=== PATIENT | male | born 1950 | race Caucasian/White ===

== ENCOUNTER 2018-09-18 17:26 | Observation (INO) ==
[2018-09-18] MEDS ORDERED: guaiFENesin/DM ER 600-30 MG TABLET PO PRN (17:36)
[2018-09-18] MEDS ORDERED: POTASSIUM CHLORIDE 20 MEQ TABLET PO PRN (17:36)
[2018-09-18] MEDS ORDERED: BISACODYL 5 MG TABLET PO PRN (17:36)
[2018-09-18] MEDS ORDERED: MAGNESIUM SULF RIDER 4 GM in PREMIX 1 EACH IV PRN (17:36)
[2018-09-18] MEDS ORDERED: ZALEPLON 5 MG CAPSULE PO PRN (17:36)
[2018-09-18] MEDS ORDERED: ONDANSETRON 4 MG/2 ML VIAL IV PRN (17:36)
[2018-09-18] MEDS ORDERED: diphenhydrAMINE CAP 25 MG CAPSULE PO PRN (17:36)
[2018-09-18] MEDS ORDERED: LACTULOSE 20 GM/30 ML UDCUP PO PRN (17:36)
[2018-09-18] MEDS ORDERED: MAGNESIUM SULF RIDER 2 GM in PREMIX 1 EACH IV PRN (17:36)
[2018-09-18] MEDS ORDERED: ACETAMINOPHEN 325 MG TABLET PO PRN (17:36)
[2018-09-18 18:36] LABS: Basophils % 0.3 % (0.0-0.8); Eosinophils % 0.6 % (0.00-10.9); Hematocrit 34.8 VOL% (42.0-52.0); Immature Granulocytes % 0.3 %; Immature Granulocytes Absolute 0.02 #; Lymphocytes # 1.8 10*3/uL (1.4-4.0); Lymphocytes % 27.5 % (21.2-54.2); Mean Corpuscular HGB Conc 31.6 GM/DL (32-36); Mean Corpuscular Volume 97.8 FL (87-102); Mean Platelet Volume 9.2 FL (9.6-12.0); Monocytes % 6.7 % (1.7-12.7); Neutrophils % 64.6 % (38.7-73.9); Platelet Count 246 T/CUMM (130-400); Red Blood Count 3.56 MC/CUMM (3.8-5.5); Red Cell Distribution Width 13.2 % (9.3-17.3); White Blood Count 6.6 T/CUMM (4-12)
[2018-09-18 18:46] LABS: Alanine Aminotransferase 14 U/L (16-61); Albumin 3.5 G/DL (3.4-5.0); Alkaline Phosphatase 83 U/L (45-117); Aspartate Amino Transferase 9 U/L (0-37); Bilirubin,Total < 0.39 MG/DL (0.2-1.0); Blood Urea Nitrogen 13 MG/DL (7-18); Calcium 9.2 MG/DL (8.5-10.1); Glucose 96 MG/DL (74-106); Osmolality,Calculated 280.3 MOS/KG (273-304); Total Protein 6.8 G/DL (6.4-8.3)
[2018-09-18 18:49] LABS: Troponin I < 0.015 NG/ML (0.00-0.045)
[2018-09-18] MEDS: DILTIAZEM 60 MG TABLET PO SCH (20:38)
[2018-09-18 20:59] LABS: Troponin I < 0.015 NG/ML (0.00-0.045)
[2018-09-18] MEDS ORDERED: ENOXAPARIN 40 MG/0.4 ML SYRINGE SUBCUT SCH (21:00)
[2018-09-19 00:05] LABS: Troponin I < 0.015 NG/ML (0.00-0.045)
[2018-09-19 04:59] LABS: Basophils % 0.3 % (0.0-0.8); Eosinophils # 0.1 10*3/uL (0.0-0.87); Eosinophils % 0.8 % (0.00-10.9); Hematocrit 36.2 VOL% (42.0-52.0); Hemoglobin 11.4 GM/DL (14.0-18.0); Immature Granulocytes % 0.3 %; Immature Granulocytes Absolute 0.02 #; Lymphocytes % 31.4 % (21.2-54.2); Mean Corpuscular HGB Conc 31.5 GM/DL (32-36); Mean Corpuscular Volume 98.4 FL (87-102); Mean Platelet Volume 9.2 FL (9.6-12.0); Monocytes % 7.4 % (1.7-12.7); Neutrophils % 59.8 % (38.7-73.9); Platelet Count 247 T/CUMM (130-400); Red Blood Count 3.68 MC/CUMM (3.8-5.5); Red Cell Distribution Width 13.2 % (9.3-17.3); White Blood Count 6.4 T/CUMM (4-12)
[2018-09-19 05:23] LABS: Calcium 9.2 MG/DL (8.5-10.1); Osmolality,Calculated 284.8 MOS/KG (273-304); Risk Ratio 4.51; Thyroid Stimulating Hormone 1.97 uIU/ml (0.358-3.74)
[2018-09-19] MEDS ORDERED: CILOSTAZOL 50 MG TABLET PO SCH (09:00)
[2018-09-19] MEDS ORDERED: PANTOPRAZOLE 40 MG TABLET PO SCH (09:00)
[2018-09-19] MEDS: PANTOPRAZOLE 40 MG TABLET PO SCH ×2 (09:55→21:28)
[2018-09-19] MEDS: DILTIAZEM 60 MG TABLET PO SCH ×3 (09:55→21:29)
[2018-09-19] MEDS ORDERED: DIAZEPAM 5 MG TABLET PO ONE (11:51)
[2018-09-19] MEDS ORDERED: diphenhydrAMINE CAP 25 MG CAPSULE PO ONE (11:51)
[2018-09-19] MEDS ORDERED: POTASSIUM CHLORIDE RIDER 10 MEQ in PREMIX 1 EACH IV PRN (11:51)
[2018-09-19] MEDS ORDERED: MAGNESIUM SULF RIDER 2 GM in PREMIX 1 EACH IV PRN (11:51)
[2018-09-19] MEDS ORDERED: LIDOCAINE 1% 20 ML VIAL ONE (11:57)
[2018-09-19] MEDS ORDERED: SODIUM BICARBONATE 2.4 MEQ/5 ML VIAL ONE (11:57)
[2018-09-19] MEDS ORDERED: HEPARIN/NACL 0.9% 2 UNITS/ML 1,000 ML IV ONE (11:57)
[2018-09-19] MEDS ORDERED: SODIUM CHLORIDE 0.45% 1,000 ML IV SCH (12:00)
[2018-09-19 12:59] LABS: Apearance,Urine CLEAR (Clear); Bilirubin,Urine Negative (Negative); Blood, Urine Negative (Negative); Glucose,Urine (UA) Negative (Negative); Ketones,Urine Negative (Negative); Mucus,Urine Occasional /LPF (Occasional); Nitrite,Urine Negative (Negative); Protein,Urine Negative; Squamous Epithelial Cell,Urine Occasional /HPF (0-10); Urine Color Yellow (Yellow); Urine Specific Gravity 1.012 (1.001-1.035); Urine Urobilinogen < 2.0 EU/DL (0.2-1.0)
[2018-09-19] MEDS ORDERED: fentaNYL 100 MCG/2 ML VIAL ONE (15:09)
[2018-09-19] MEDS ORDERED: MIDAZOLAM 2 MG/2 ML VIAL ONE ×2 (15:09→15:47)
[2018-09-19] MEDS ORDERED: ASPIRIN 325 MG TABLET ONE (15:29)
[2018-09-19] MEDS ORDERED: BIVALIRUDIN 250 MG VIAL IV ONE (15:30)
[2018-09-19] MEDS ORDERED: TICAGRELOR 90 MG TABLET ONE (16:04)
[2018-09-19] MEDS ORDERED: NITROGLYCERIN DRIP 50 MG/250 ML BOTTLE IV ONE (16:06)
[2018-09-19] MEDS ORDERED: MORPHINE 4 MG/1 ML VIAL IV PRN (16:39)
[2018-09-19] MEDS ORDERED: ACETAMINOPHEN 325 MG TABLET PO PRN (16:39)
[2018-09-19] MEDS: DOXAZOSIN 4 MG TABLET PO SCH (18:12)
[2018-09-19] MEDS: EZETIMIBE 10 MG TABLET PO SCH (18:13)
[2018-09-19] MEDS: TICAGRELOR 90 MG TABLET PO SCH (21:28)
[2018-09-20 05:05] LABS: Basophils % 0.4 % (0.0-0.8); Eosinophils % 0.5 % (0.00-10.9); Hematocrit 34.1 VOL% (42.0-52.0); Hemoglobin 11.1 GM/DL (14.0-18.0); Immature Granulocytes % 0.4 %; Immature Granulocytes Absolute 0.03 #; Lymphocytes # 1.3 10*3/uL (1.4-4.0); Lymphocytes % 17.6 % (21.2-54.2); Mean Corpuscular HGB Conc 32.6 GM/DL (32-36); Mean Corpuscular Volume 96.3 FL (87-102); Mean Platelet Volume 9.3 FL (9.6-12.0); Monocytes % 6.2 % (1.7-12.7); Neutrophils % 74.9 % (38.7-73.9); Platelet Count 252 T/CUMM (130-400); Red Blood Count 3.54 MC/CUMM (3.8-5.5); Red Cell Distribution Width 13.2 % (9.3-17.3); White Blood Count 7.4 T/CUMM (4-12)
[2018-09-20 05:42] LABS: Calcium 8.8 MG/DL (8.5-10.1); Osmolality,Calculated 283.8 MOS/KG (273-304)
[2018-09-20 08:13] VITALS: BP 134/72
[2018-09-20] MEDS ORDERED: ASPIRIN EC 81 MG TABLET PO SCH (09:00)
[2018-09-20] MEDS: DILTIAZEM 60 MG TABLET PO SCH (10:46)
[2018-09-20] MEDS: EZETIMIBE 10 MG TABLET PO SCH (10:46)
[2018-09-20] MEDS: PANTOPRAZOLE 40 MG TABLET PO SCH (10:47)
[2018-09-20] MEDS: TICAGRELOR 90 MG TABLET PO SCH (10:47)
[2018-09-20] MEDS: DOXAZOSIN 4 MG TABLET PO SCH (10:48)
== END 2018-09-20 11:56 | disposition home or self-care (01) ==
LOC: N.TELEN
PROVIDERS: ADMIT Internal Medicine Cardiovascular Disease; ATTEND Internal Medicine Cardiovascular Disease
PROC: CLCCHCL (ICD-10-PCS; 2018-09-19 12:15)

== ENCOUNTER 2019-10-17 21:53 | Inpatient (IN) ==
[2019-10-17] MEDS ORDERED: ACETAMINOPHEN 500 MG TABLET PO STA (23:07)
[2019-10-17] MEDS ORDERED: ACETAMINOPHEN 500 MG TABLET ONE (23:08)
[2019-10-17 23:12] LABS: Basophils % 0.2 % (0.0-0.8); Immature Granulocytes % 0.5 %; Immature Granulocytes Absolute 0.06 #; Lymphocytes # 0.7 10*3/uL (1.4-4.0); Lymphocytes % 6.3 % (21.2-54.2); Mean Corpuscular HGB Conc 32.4 GM/DL (32-36); Mean Corpuscular Volume 96.6 FL (87-102); Mean Platelet Volume 9.6 FL (9.6-12.0); Monocytes % 4.2 % (1.7-12.7); Neutrophils % 88.8 % (38.7-73.9); Platelet Count 216 T/CUMM (130-400); Red Blood Count 3.83 MC/CUMM (3.8-5.5); Red Cell Distribution Width 13.2 % (9.3-17.3); White Blood Count 11.1 T/CUMM (4-12)
[2019-10-17 23:19] LABS: Albumin 3.6 G/DL (3.4-5.0); Bilirubin,Total 0.7 MG/DL (0.2-1.0); Calcium 9.1 MG/DL (8.5-10.1); Osmolality,Calculated 273.7 MOS/KG (273-304); Total Protein 7.3 G/DL (6.4-8.3)
[2019-10-17] MEDS ORDERED: CLINDAMYCIN INJ 600 MG in PREMIX 1 EACH IV STA (23:22)
[2019-10-18 00:58] LABS: Apearance,Urine CLEAR (Clear); Bilirubin,Urine Negative (Negative); Blood, Urine Small mg/dL (Negative); Glucose,Urine (UA) Negative (Negative); Ketones,Urine Negative (Negative); Mucus,Urine Moderate /LPF (Occasional); Nitrite,Urine Negative (Negative); Protein,Urine Negative; RBC,Urine 1 /HPF (0-4); Urine Color Yellow (Yellow); Urine Specific Gravity 1.017 (1.001-1.035); Urine Urobilinogen < 2.0 EU/DL (0.2-1.0); WBC,Urine 1 /HPF (0-6)
[2019-10-18] MEDS ORDERED: MORPHINE 4 MG/1 ML VIAL IV PRN (01:23)
[2019-10-18] MEDS ORDERED: DEXTROSE 50% 25 GM/50 ML VIAL IV PRN (01:23)
[2019-10-18] MEDS ORDERED: NICOTINE 21 MG/24 HR PATCH TRANSDERM PRN (01:23)
[2019-10-18] MEDS ORDERED: hydrALAZINE 20 MG/1 ML VIAL IV PRN (01:23)
[2019-10-18] MEDS ORDERED: GLUCAGON 1 MG VIAL IM PRN (01:23)
[2019-10-18] MEDS ORDERED: ONDANSETRON 4 MG/2 ML VIAL IV PRN (01:23)
[2019-10-18] MEDS: ACETAMINOPHEN 325 MG TABLET PO PRN ×2 (07:57→17:17)
[2019-10-18] MEDS: INSULIN REGULAR 100 UNIT/ML SUBCUT SCH ×4 (10:00→20:09)
[2019-10-18] MEDS: DOXAZOSIN 4 MG TABLET PO SCH (10:01)
[2019-10-18] MEDS: DILTIAZEM 60 MG TABLET PO SCH ×3 (10:01→20:24)
[2019-10-18] MEDS: ASPIRIN EC 81 MG TABLET PO SCH (10:01)
[2019-10-18] MEDS: TICAGRELOR 90 MG TABLET PO SCH ×2 (10:02→20:24)
[2019-10-18] MEDS: EZETIMIBE 10 MG TABLET PO SCH (10:02)
[2019-10-18] MEDS: LACTATED RINGERS 1,000 ML IV SCH (16:15)
[2019-10-18] MEDS: CLINDAMYCIN INJ 900 MG in PREMIX 1 EACH IV SCH ×2 (16:15→20:12)
[2019-10-19] MEDS: CLINDAMYCIN INJ 900 MG in PREMIX 1 EACH IV SCH ×3 (03:39→18:30)
[2019-10-19] MEDS: LACTATED RINGERS 1,000 ML IV SCH (06:10)
[2019-10-19] MEDS: INSULIN REGULAR 100 UNIT/ML SUBCUT SCH ×4 (07:49→21:51)
[2019-10-19] MEDS: ASPIRIN EC 81 MG TABLET PO SCH (09:54)
[2019-10-19] MEDS: EZETIMIBE 10 MG TABLET PO SCH (09:54)
[2019-10-19] MEDS: DILTIAZEM 60 MG TABLET PO SCH (09:56)
[2019-10-19] MEDS: DOXAZOSIN 4 MG TABLET PO SCH (09:56)
[2019-10-19] MEDS: TICAGRELOR 90 MG TABLET PO SCH ×2 (11:54→21:24)
[2019-10-19] MEDS ORDERED: PSEUDOEPHEDRINE 30 MG TABLET PO PRN (12:34)
[2019-10-19] MEDS: TAMSULOSIN 0.4 MG CAPSULE PO SCH (21:24)
[2019-10-19] MEDS: CETIRIZINE 10 MG TABLET PO PRN (23:04)
[2019-10-20] MEDS: CLINDAMYCIN INJ 900 MG in PREMIX 1 EACH IV SCH ×3 (02:53→18:12)
[2019-10-20] MEDS: LACTATED RINGERS 1,000 ML IV SCH ×4 (07:08→14:06)
[2019-10-20 08:00] LABS: Basophils % 0.2 % (0.0-0.8); Eosinophils # 0.1 10*3/uL (0.0-0.87); Eosinophils % 1.1 % (0.00-10.9); Hematocrit 30.7 VOL% (42.0-52.0); Immature Granulocytes % 0.2 %; Immature Granulocytes Absolute 0.01 #; Lymphocytes # 1.2 10*3/uL (1.4-4.0); Mean Corpuscular HGB Conc 32.2 GM/DL (32-36); Mean Corpuscular Volume 97.2 FL (87-102); Mean Platelet Volume 9.8 FL (9.6-12.0); Neutrophils % 65.5 % (38.7-73.9); Platelet Count 177 T/CUMM (130-400); Red Blood Count 3.16 MC/CUMM (3.8-5.5); Red Cell Distribution Width 12.9 % (9.3-17.3)
[2019-10-20 08:07] LABS: Hemoglobin 9.9 GM/DL (14.0-18.0); White Blood Count 5.4 T/CUMM (4-12)
[2019-10-20 08:19] LABS: Calcium 8.9 MG/DL (8.5-10.1); Osmolality,Calculated 283.8 MOS/KG (273-304)
[2019-10-20] MEDS: INSULIN REGULAR 100 UNIT/ML SUBCUT SCH ×4 (08:36→21:54)
[2019-10-20] MEDS: TICAGRELOR 90 MG TABLET PO SCH ×2 (10:05→21:54)
[2019-10-20] MEDS: ASPIRIN EC 81 MG TABLET PO SCH (10:05)
[2019-10-20] MEDS: EZETIMIBE 10 MG TABLET PO SCH (10:06)
[2019-10-20] MEDS ORDERED: LIDOCAINE 1% 20 ML VIAL ONE (11:34)
[2019-10-20] MEDS ORDERED: fentaNYL 100 MCG/2 ML VIAL ONE (13:16)
[2019-10-20] MEDS ORDERED: LIDOCAINE 2% 5 ML VIAL ONE (13:16)
[2019-10-20] MEDS ORDERED: MIDAZOLAM 2 MG/2 ML VIAL ONE (13:16)
[2019-10-20] MEDS ORDERED: propofoL 200 MG/20 ML VIAL IV ONE (13:16)
[2019-10-20] MEDS ORDERED: ePHEDrine 50 MG/ML VIAL ONE (13:17)
[2019-10-20] MEDS: DILTIAZEM 60 MG TABLET PO SCH ×2 (14:27→21:54)
[2019-10-20] MEDS: ACETAMINOPHEN 325 MG TABLET PO PRN (21:54)
[2019-10-20] MEDS: TAMSULOSIN 0.4 MG CAPSULE PO SCH (21:55)
[2019-10-20] MEDS: CETIRIZINE 10 MG TABLET PO PRN (23:18)
[2019-10-21] MEDS ORDERED: SODIUM CHLORIDE 0.9% 500 ML IV ONE (00:08)
[2019-10-21] MEDS: CLINDAMYCIN INJ 900 MG in PREMIX 1 EACH IV SCH ×2 (02:38→10:45)
[2019-10-21 05:46] LABS: Basophils % 0.2 % (0.0-0.8); Eosinophils # 0.1 10*3/uL (0.0-0.87); Eosinophils % 1.9 % (0.00-10.9); Hematocrit 29.4 VOL% (42.0-52.0); Hemoglobin 9.2 GM/DL (14.0-18.0); Immature Granulocytes % 0.2 %; Immature Granulocytes Absolute 0.01 #; Lymphocytes # 1.4 10*3/uL (1.4-4.0); Lymphocytes % 33.4 % (21.2-54.2); Mean Corpuscular HGB Conc 31.3 GM/DL (32-36); Mean Corpuscular Volume 98.7 FL (87-102); Mean Platelet Volume 9.8 FL (9.6-12.0); Monocytes % 9.2 % (1.7-12.7); Neutrophils % 55.1 % (38.7-73.9); Platelet Count 150 T/CUMM (130-400); Red Blood Count 2.98 MC/CUMM (3.8-5.5); Red Cell Distribution Width 12.8 % (9.3-17.3); White Blood Count 4.1 T/CUMM (4-12)
[2019-10-21 06:10] LABS: Hypochromasia 1+; Microcytosis 1+; Ovalocytes Slight; Platelet Estimate Adequate
[2019-10-21] MEDS: INSULIN REGULAR 100 UNIT/ML SUBCUT SCH ×2 (08:01→20:07)
[2019-10-21] MEDS: EZETIMIBE 10 MG TABLET PO SCH (10:37)
[2019-10-21] MEDS: ASPIRIN EC 81 MG TABLET PO SCH (10:37)
[2019-10-21] MEDS: ACETAMINOPHEN 325 MG TABLET PO PRN (10:37)
[2019-10-21] MEDS: DILTIAZEM 60 MG TABLET PO SCH ×2 (10:38→20:08)
[2019-10-21] MEDS: TICAGRELOR 90 MG TABLET PO SCH (10:40)
[2019-10-21] MEDS: LACTATED RINGERS 1,000 ML IV SCH ×2 (10:46→10:50)
[2019-10-21] MEDS ORDERED: ACETAMINOPHEN 500 MG TABLET PO SCH (15:00)
[2019-10-21 20:03] VITALS: BP 106/56
[2019-10-21] MEDS ORDERED: CLOPIDOGREL 75 MG TABLET PO SCH (21:00)
[2019-10-21] MEDS ORDERED: PANTOPRAZOLE 40 MG TABLET PO SCH (21:00)
== END 2019-10-21 18:00 | disposition home or self-care (01) | DRG 264 ==
LOC: N.ED 21:53 → N.EDINP 21:53 → SUATTDRO 10-18 01:23 → N.3E 10-18 02:03 → SUATTDRO 10-20 14:44
PROVIDERS: ADMIT Internal Medicine Geriatric Medicine; ATTEND Internal Medicine

== ENCOUNTER 2021-07-24 13:19 | Inpatient (IN) ==
[2021-07-24] MEDS ORDERED: MAGNESIUM HYDROXIDE SUSP 30 ML UDCUP PO PRN (14:08)
[2021-07-24] MEDS ORDERED: ONDANSETRON 4 MG/2 ML VIAL IV PRN (14:09)
[2021-07-24] MEDS ORDERED: MORPHINE 2 MG/1 ML SYRINGE IV PRN ×2 (14:09)
[2021-07-24 17:03] LABS: Basophils % 0.4 % (0.0-0.8); Eosinophils # 0.1 10*3/uL (0.0-0.87); Eosinophils % 1.6 % (0.00-10.9); Hematocrit 35.4 VOL% (42.0-52.0); Hemoglobin 11.2 GM/DL (14.0-18.0); Immature Granulocytes % 0.6 %; Immature Granulocytes Absolute 0.05 #; Lymphocytes # 1.9 10*3/uL (1.4-4.0); Lymphocytes % 23.2 % (21.2-54.2); Mean Corpuscular HGB Conc 31.6 GM/DL (32-36); Mean Platelet Volume 9.2 FL (9.6-12.0); Monocytes # 0.7 10*3/uL (0.11-0.8); Monocytes % 7.8 % (1.7-12.7); Neutrophils % 66.4 % (38.7-73.9); Platelet Count 242 T/CUMM (130-400); Red Blood Count 3.54 MC/CUMM (3.8-5.5); Red Cell Distribution Width 12.4 % (9.3-17.3); White Blood Count 8.4 T/CUMM (4-12)
[2021-07-24 17:20] LABS: Albumin 3.5 G/DL (3.4-5.0); Bilirubin,Total 0.5 MG/DL (0.20-1.00); Calcium 9.5 MG/DL (8.5-10.1); Potassium 4.1 MMOL/L (3.5-5.1)
[2021-07-24] MEDS ORDERED: FUROSEMIDE 20 MG TABLET PO PRN (18:33)
[2021-07-24] MEDS ORDERED: POTASSIUM CHLORIDE 10 MEQ TABLET PO PRN (18:33)
[2021-07-24] MEDS ORDERED: NITROGLYCERIN SL 0.4 MG TABLET SL PRN (18:33)
[2021-07-24 18:48] LABS: Mucus,Urine Occasional /LPF (Occasional); RBC,Urine <1 /HPF (0-4)
[2021-07-24 18:51] LABS: Bilirubin,Urine Negative (Negative); Blood, Urine Negative (Negative); Glucose,Urine (UA) Negative (Negative); Ketones,Urine Negative (Negative); Nitrite,Urine Negative (Negative); Protein,Urine Negative (Negative); Urine Appearance Clear (Clear); Urine Color Yellow (Yellow); Urine Urobilinogen 0.2 eU/dL (<2.0); Urine pH 6.5 (4.5-8.0)
[2021-07-24 19:19] LABS: PT Patient Result 10.7 SECS (10.5-12.0); Partial Thromboplastin Time 32.2 SECS (23.8-32.1)
[2021-07-24] MEDS: METOPROLOL SUCCINATE XL 50 MG TABLET PO SCH (21:04)
[2021-07-24] MEDS: ASPIRIN EC 81 MG TABLET PO SCH (22:07)
[2021-07-24] MEDS: DOXAZOSIN 1 MG TABLET PO SCH (22:07)
[2021-07-25] MEDS ORDERED: NON-FORMULARY MEDICATION (Omeprazole 20 MG capsule,delayed release(DR/EC)) PO SCH (09:00)
[2021-07-25] MEDS: DILTIAZEM 60 MG TABLET PO SCH (09:00)
[2021-07-25] MEDS: CYANOCOBALAMIN 500 MCG TABLET PO SCH (10:21)
[2021-07-25] MEDS: VITAMIN E 400 UNIT CAPSULE PO SCH (10:21)
[2021-07-25] MEDS: ZINC GLUCONATE 50 MG TABLET PO SCH (10:21)
[2021-07-25] MEDS: EZETIMIBE 10 MG TABLET PO SCH (10:21)
[2021-07-25] MEDS: CHOLECALCIFEROL 5,000 UNIT TABLET PO SCH (10:21)
[2021-07-25] MEDS: PANTOPRAZOLE 40 MG TABLET PO SCH (10:22)
[2021-07-25] MEDS: LACTATED RINGERS 1,000 ML IV SCH ×2 (10:37→17:46)
[2021-07-25] MEDS ORDERED: DEXAMETHASONE 4 MG/1 ML VIAL ONE ×2 (12:20→14:40)
[2021-07-25] MEDS ORDERED: LIDOCAINE 1% 5 ML VIAL ONE (12:20)
[2021-07-25] MEDS ORDERED: ROPIVACAINE 0.5% 30 ML VIAL ONE (12:20)
[2021-07-25] MEDS ORDERED: fentaNYL 100 MCG/2 ML VIAL ONE (12:26)
[2021-07-25] MEDS ORDERED: MIDAZOLAM 2 MG/2 ML VIAL ONE (12:26)
[2021-07-25] MEDS ORDERED: ETOMIDATE 40 MG/20 ML VIAL IV ONE (14:40)
[2021-07-25] MEDS ORDERED: SUCCINYLCHOLINE 200 MG/10 ML VIAL ONE (14:40)
[2021-07-25] MEDS ORDERED: DESFLURANE 1 UNIT/15 MINUTE INH ONE (14:40)
[2021-07-25] MEDS ORDERED: ONDANSETRON 4 MG/2 ML VIAL ONE (14:40)
[2021-07-25] MEDS ORDERED: propofoL 200 MG/20 ML VIAL IV ONE (14:40)
[2021-07-25] MEDS ORDERED: ROCURONIUM 50 MG/5 ML VIAL IV ONE (14:40)
[2021-07-25] MEDS ORDERED: BACITRACIN OINT 0.9 GM PACK TOP ONE (14:42)
[2021-07-25] MEDS ORDERED: PHENYLEPHRINE 1 MG/10 ML SYRINGE IV ONE (14:47)
[2021-07-25] MEDS ORDERED: diphenhydrAMINE CAP 25 MG CAPSULE PO PRN (14:48)
[2021-07-25] MEDS ORDERED: ZALEPLON 5 MG CAPSULE PO PRN (14:48)
[2021-07-25] MEDS ORDERED: MAGNESIUM HYDROXIDE SUSP 30 ML UDCUP PO PRN (14:48)
[2021-07-25] MEDS ORDERED: SEVOFLURANE 1 UNIT/15 MINUTE INH ONE (14:56)
[2021-07-25] MEDS: DOXAZOSIN 1 MG TABLET PO SCH (20:11)
[2021-07-25] MEDS: ASPIRIN EC 81 MG TABLET PO SCH (20:11)
[2021-07-25] MEDS: METOPROLOL SUCCINATE XL 50 MG TABLET PO SCH (20:12)
[2021-07-25] MEDS: DOCUSATE SODIUM 100 MG CAPSULE PO SCH (20:12)
[2021-07-26 05:03] LABS: Hemoglobin 10.5 GM/DL (14.0-18.0); Immature Granulocytes % 0.7 %; Immature Granulocytes Absolute 0.07 #; Lymphocytes # 0.8 10*3/uL (1.4-4.0); Lymphocytes % 8.3 % (21.2-54.2); Mean Corpuscular HGB Conc 31.8 GM/DL (32-36); Mean Corpuscular Volume 98.8 FL (87-102); Mean Platelet Volume 9.6 FL (9.6-12.0); Monocytes # 0.3 10*3/uL (0.11-0.8); Platelet Count 267 T/CUMM (130-400); Red Blood Count 3.34 MC/CUMM (3.8-5.5); Red Cell Distribution Width 12.4 % (9.3-17.3)
[2021-07-26 05:19] LABS: Osmolality,Calculated 273.2 MOS/KG (273-304)
[2021-07-26] MEDS: ZINC GLUCONATE 50 MG TABLET PO SCH (08:53)
[2021-07-26] MEDS: VITAMIN E 400 UNIT CAPSULE PO SCH (08:53)
[2021-07-26] MEDS: CYANOCOBALAMIN 500 MCG TABLET PO SCH (08:53)
[2021-07-26] MEDS: DOCUSATE SODIUM 100 MG CAPSULE PO SCH (08:54)
[2021-07-26] MEDS: DILTIAZEM 60 MG TABLET PO SCH (08:54)
[2021-07-26] MEDS: CHOLECALCIFEROL 5,000 UNIT TABLET PO SCH (08:54)
[2021-07-26] MEDS: PANTOPRAZOLE 40 MG TABLET PO SCH (08:54)
[2021-07-26] MEDS: EZETIMIBE 10 MG TABLET PO SCH (08:56)
[2021-07-26] MEDS ORDERED: NON-FORMULARY MEDICATION (Magnesium 250 mg Tablet) PO SCH (09:00)
[2021-07-26 11:49] VITALS: BP 124/58
[2021-07-26] MEDS ORDERED: CLOPIDOGREL 75 MG TABLET PO SCH (21:00)
== END 2021-07-26 12:55 | disposition home or self-care (01) | DRG 481 ==
LOC: N.3E 15:54
PROVIDERS: ADMIT Orthopaedic Surgery; ATTEND Orthopaedic Surgery